=== PATIENT | female | born 1930 | race African-American/Black ===

== ENCOUNTER 2020-01-23 02:20 | Inpatient (IN) | payer BC, MEDICARE ==
[~2020-01-23] VITALS: Ht 162.6 cm; Wt 87.5 kg
[2020-01-23 02:20] VITALS: BP 126/66
[2020-01-23] MEDS ORDERED: METO-539 MT (04:27)
[2020-01-23] MEDS ORDERED: AMLO5TAB4 MT (04:27)
[2020-01-23] MEDS ORDERED: HYDR-2510 PO (04:27)
[2020-01-23] MEDS ORDERED: HYDR100T26 MT (04:27)
[2020-01-23] MEDS ORDERED: GABA-531 PO (04:27)
[2020-01-23] MEDS ORDERED: GLIM1TAB MT (04:27)
[2020-01-23] MEDS ORDERED: LOSA100T3 MT (04:27)
[2020-01-23] MEDS ORDERED: ATOR20TA65 MT (04:27)
[2020-01-23 04:30] VITALS: BP 145/61
[2020-01-23] MEDS ORDERED: DEXTROSE 50% WATER 50ML SYRINGE IV PRN (04:30)
[2020-01-23] MEDS: BLOOD SUGAR DIAGNOSTIC STRIP TEST SCH ×4 (07:47→21:29)
[2020-01-23 08:09] VITALS: BP 154/59
[2020-01-23] MEDS: INSULIN LISPRO 100 UNITS/ML SUBCUT SCH ×4 (08:35→21:34)
[2020-01-23] MEDS: FUROSEMIDE 40MG/4ML VIAL IVP SCH (08:37)
[2020-01-23] MEDS: HYDRALAZINE HCL 100MG TABLET PO SCH ×2 (08:37→21:40)
[2020-01-23] MEDS: HYDROCHLOROTHIAZIDE 25MG TABLET PO SCH (08:37)
[2020-01-23] MEDS: GLIMEPIRIDE 1MG TABLET PO SCH (08:37)
[2020-01-23] MEDS: CEFTRIAXONE 1 G PREMIX 50 ML IV SCH (08:38)
[2020-01-23] MEDS: METOPROLOL TARTRATE 50MG TABLET PO SCH ×2 (08:38→21:36)
[2020-01-23] MEDS: AMLODIPINE 5MG TABLET PO SCH ×2 (08:41→21:35)
[2020-01-23] MEDS: LOSARTAN POTASSIUM 100 MG TABLET PO SCH (08:41)
[2020-01-23 10:28] LABS: BASOPHILS % 0.3 % (0.0-2.0); EOSINOPHILS % 1.5 % (0.0-5.0); HEMATOCRIT. 25.4 % (36.0-48.0); HEMOGLOBIN. 8.1 g/dL (12.0-16.0); LYMPHOCYTES % 8.1 % (20.0-50.0); MEAN CORPUSCULAR HEMOGLOBIN 26.3 pg (28.0-32.0); MEAN CORPUSCULAR VOLUME 82.7 fL (81.0-99.0); MONOCYTES % 6.7 % (2.0-8.0); NEUTROPHILS % 83.4 % (40.0-76.0); PLATELET 244 x1000/uL (130-400); RED BLOOD CELL COUNT 3.07 mill/uL (4.2-5.4); RED CELL DISTRIBUTION WIDTH 14.7 % (11.6-14.6)
[2020-01-23 10:41] LABS: CHLORIDE 109 mEq/L (98-107)
[2020-01-23 12:03] VITALS: BP 125/74
[2020-01-23] MEDS: ENOXAPARIN 30MG/0.3ML SYR SUBCUT SCH (12:35)
[2020-01-23 16:11] VITALS: BP 154/68
[2020-01-23] MEDS ORDERED: ACETAMINOPHEN 325MG TABLET PO PRN (17:00)
[2020-01-23] MEDS ORDERED: SODIUM CHLORIDE 0.45% 1,000 ML IV SCH (17:30)
[2020-01-23] MEDS: AZITHROMYCIN 500 MG TABLET PO SCH (18:07)
[2020-01-23] MEDS: LIDOCAINE 5% PATCH TOP SCH (18:31)
[2020-01-23 20:19] LABS: CREATINE KINASE 1548 IU/L (26-192)
[2020-01-23 20:22] VITALS: BP 125/65
[2020-01-23] MEDS: ATORVASTATIN CALCIUM 20MG TABLET PO SCH (21:35)
[2020-01-23] MEDS: GABAPENTIN 300MG CAPSULE PO SCH (21:35)
[2020-01-24] LABS: CLARITY URINE CLEAR (CLEAR); COLOR URINE YELLOW (YELLOW); KETONES URINE NEGATIVE (NEGATIVE); LEUKOCYTE ESTERASE URINE 2+ (NEGATIVE); NITRITE URINE NEGATIVE (NEGATIVE); OCCULT BLOOD URINE NEGATIVE (NEGATIVE); PROTEIN URINE 1+ (NEGATIVE); SPECIFIC GRAVITY URINE 1.013 (1.005-1.030); UROBILINOGEN URINE 0.2 E.U./dL (0.2-1.0)
[2020-01-24 00:24] VITALS: BP 137/55
[2020-01-24 04:00] VITALS: BP 138/54
[2020-01-24] MEDS: BLOOD SUGAR DIAGNOSTIC STRIP TEST SCH ×4 (06:40→21:08)
[2020-01-24] MEDS: GLIMEPIRIDE 1MG TABLET PO SCH (06:43)
[2020-01-24 07:00] LABS: PROTHROMBIN TIME 10.4 sec (9.6-11.0)
[2020-01-24 07:16] LABS: BASOPHILS % 0.4 % (0.0-2.0); CHLORIDE 109 mEq/L (98-107); EOSINOPHILS % 3.6 % (0.0-5.0); HEMATOCRIT. 21.9 % (36.0-48.0); HEMOGLOBIN. 7.1 g/dL (12.0-16.0); LYMPHOCYTES % 12.7 % (20.0-50.0); MEAN CORPUSCULAR HEMOGLOBIN 26.4 pg (28.0-32.0); MEAN CORPUSCULAR VOLUME 81.2 fL (81.0-99.0); MONOCYTES % 7.3 % (2.0-8.0); RED BLOOD CELL COUNT 2.69 mill/uL (4.2-5.4); RED CELL DISTRIBUTION WIDTH 14.6 % (11.6-14.6)
[2020-01-24 08:06] VITALS: BP 125/75
[2020-01-24 08:46] LABS: MEAN PLATELET VOLUME 8.6 fl (7.4-10.4); PLATELET 203 x1000/uL (130-400)
[2020-01-24] MEDS: HYDROCHLOROTHIAZIDE 25MG TABLET PO SCH (08:46)
[2020-01-24] MEDS: LOSARTAN POTASSIUM 100 MG TABLET PO SCH (08:46)
[2020-01-24] MEDS: CEFTRIAXONE 1 G PREMIX 50 ML IV SCH (08:46)
[2020-01-24] MEDS: HYDRALAZINE HCL 100MG TABLET PO SCH ×2 (08:47→21:07)
[2020-01-24] MEDS: AZITHROMYCIN 500 MG TABLET PO SCH (08:47)
[2020-01-24] MEDS: AMLODIPINE 5MG TABLET PO SCH ×2 (08:48→21:07)
[2020-01-24] MEDS: METOPROLOL TARTRATE 50MG TABLET PO SCH ×2 (08:48→21:07)
[2020-01-24] MEDS: ENOXAPARIN 30MG/0.3ML SYR SUBCUT SCH (08:49)
[2020-01-24] MEDS: INSULIN LISPRO 100 UNITS/ML SUBCUT SCH ×4 (08:51→21:00)
[2020-01-24] MEDS: LIDOCAINE 5% PATCH TOP SCH (09:31)
[2020-01-24 12:08] VITALS: BP 130/57
[2020-01-24] MEDS ORDERED: IPRATROPIUM/ALBUTEROL 0.5-3(2.5)MG/3ML NEB HHN PRN (14:00)
[2020-01-24 16:04] VITALS: BP 142/55
[2020-01-24] MEDS: TRAMADOL 50MG TABLET PO PRN (18:10)
[2020-01-24 20:04] VITALS: BP 117/57
[2020-01-24] MEDS: ATORVASTATIN CALCIUM 20MG TABLET PO SCH (21:07)
[2020-01-24] MEDS: GABAPENTIN 300MG CAPSULE PO SCH (21:07)
[2020-01-24] MEDS: IPRATROPIUM/ALBUTEROL 0.5-3(2.5)MG/3ML NEB HHN SCH (23:45)
[2020-01-25] VITALS (9 sets, daily range): BP systolic 127–164; BP diastolic 48–73
[2020-01-25 06:27] LABS: BASOPHILS % 0.3 % (0.0-2.0); EOSINOPHILS % 3.8 % (0.0-5.0); HEMATOCRIT. 21.2 % (36.0-48.0); LYMPHOCYTES % 18.4 % (20.0-50.0); MEAN CORPUSCULAR VOLUME 81.6 fL (81.0-99.0); MEAN PLATELET VOLUME 7.9 fl (7.4-10.4); MONOCYTES % 8.1 % (2.0-8.0); NEUTROPHILS % 69.4 % (40.0-76.0); PLATELET 231 x1000/uL (130-400); RED CELL DISTRIBUTION WIDTH 14.6 % (11.6-14.6)
[2020-01-25] MEDS: BLOOD SUGAR DIAGNOSTIC STRIP TEST SCH ×3 (06:53→21:37)
[2020-01-25] MEDS: TRAMADOL 50MG TABLET PO PRN (06:56)
[2020-01-25] MEDS: GLIMEPIRIDE 1MG TABLET PO SCH (07:20)
[2020-01-25] MEDS: INSULIN LISPRO 100 UNITS/ML SUBCUT SCH ×4 (07:50→21:41)
[2020-01-25] MEDS: IPRATROPIUM/ALBUTEROL 0.5-3(2.5)MG/3ML NEB HHN SCH ×3 (08:27→20:26)
[2020-01-25] MEDS: CEFTRIAXONE 1 G PREMIX 50 ML IV SCH (08:34)
[2020-01-25] MEDS: LIDOCAINE 5% PATCH TOP SCH (08:34)
[2020-01-25] MEDS: ENOXAPARIN 30MG/0.3ML SYR SUBCUT SCH (08:35)
[2020-01-25] MEDS: FUROSEMIDE 40MG/4ML VIAL IVP SCH (08:35)
[2020-01-25] MEDS: AZITHROMYCIN 500 MG TABLET PO SCH (08:36)
[2020-01-25] MEDS: HYDROCHLOROTHIAZIDE 25MG TABLET PO SCH (08:36)
[2020-01-25] MEDS: LOSARTAN POTASSIUM 100 MG TABLET PO SCH (08:36)
[2020-01-25] MEDS: AMLODIPINE 5MG TABLET PO SCH ×2 (08:36→21:39)
[2020-01-25] MEDS: HYDRALAZINE HCL 100MG TABLET PO SCH ×2 (08:36→21:38)
[2020-01-25] MEDS: METOPROLOL TARTRATE 50MG TABLET PO SCH ×2 (08:37→21:39)
[2020-01-25 10:22] LABS: BG BASE EXCESS -7.6 mmol/L (-2.0-2.0); BG CARBOXYHEMOGLOBIN 0.9 % (0.5-1.5); BG DEOXYHEMOGLOBIN 5.8 % (0.0-5.0); BG FRACTION INSPIRED OXYGEN 21; BG HCO3 ACT 16.9 mmol/L (22.0-26.0); BG METHEMOGLOBIN 0.2 % (0.0-1.5); BG OXYGEN SATURATION 94.1 % (92.0-98.5); BG OXYHEMOGLOBIN 93.1 % (94.0-97.0); BG PCO2 30.4 mmHg (35.0-45.0); BG PH 7.364 (7.350-7.450); BG PO2 72.5 mmHg (75.0-100.0); BG SAMPLE SITE RIGHT RADIAL; BG TOTAL HEMOGLOBIN 8.1 g/dL (12.0-18.0); BG VENT MODE ROOM AIR
[2020-01-25 12:29] LABS: CREATINE KINASE 487 IU/L (26-192)
[2020-01-25] MEDS: SODIUM BICARBONATE IV SCH (13:40)
[2020-01-25] MEDS: SODIUM CHLORIDE 0.45% IV SCH (13:40)
[2020-01-25] MEDS: FERROUS SULFATE 325MG TABLET PO SCH (17:44)
[2020-01-25] MEDS: GABAPENTIN 300MG CAPSULE PO SCH (21:39)
[2020-01-25] MEDS: ATORVASTATIN CALCIUM 20MG TABLET PO SCH (21:39)
[2020-01-25] MEDS: EPOETIN ALFA 10000UNITS/ML VIAL SUBCUT SCH (21:41)
[2020-01-25] MEDS: HYDROCODONE/ACETAMINOPHEN 5/325MG TABLET PO PRN (22:29)
[2020-01-26] VITALS (8 sets, daily range): BP systolic 107–164; BP diastolic 47–59
[2020-01-26] MEDS: IPRATROPIUM/ALBUTEROL 0.5-3(2.5)MG/3ML NEB HHN SCH ×4 (00:58→19:41)
[2020-01-26] MEDS: SODIUM BICARBONATE IV SCH ×2 (01:35→21:07)
[2020-01-26] MEDS: SODIUM CHLORIDE 0.45% IV SCH ×2 (01:35→21:07)
[2020-01-26 06:16] LABS: BASOPHILS % 0.3 % (0.0-2.0); EOSINOPHILS % 2.4 % (0.0-5.0); HEMATOCRIT. 23.6 % (36.0-48.0); LYMPHOCYTES % 15.8 % (20.0-50.0); MEAN CORPUSCULAR HEMOGLOBIN 27.1 pg (28.0-32.0); MEAN CORPUSCULAR VOLUME 80.3 fL (81.0-99.0); MONOCYTES % 12.3 % (2.0-8.0); NEUTROPHILS % 69.2 % (40.0-76.0); PLATELET 225 x1000/uL (130-400); RED BLOOD CELL COUNT 2.93 mill/uL (4.2-5.4); RED CELL DISTRIBUTION WIDTH 14.7 % (11.6-14.6)
[2020-01-26] MEDS: BLOOD SUGAR DIAGNOSTIC STRIP TEST SCH ×4 (06:46→20:49)
[2020-01-26 07:05] LABS: PHOSPHORUS 4.2 mg/dL (2.5-4.9)
[2020-01-26] MEDS: GLIMEPIRIDE 1MG TABLET PO SCH (10:12)
[2020-01-26] MEDS: FERROUS SULFATE 325MG TABLET PO SCH ×2 (10:12→18:37)
[2020-01-26] MEDS: LOSARTAN POTASSIUM 100 MG TABLET PO SCH (10:12)
[2020-01-26] MEDS: AMLODIPINE 5MG TABLET PO SCH ×2 (10:13→21:05)
[2020-01-26] MEDS: METOPROLOL TARTRATE 50MG TABLET PO SCH ×2 (10:14→21:05)
[2020-01-26] MEDS: ENOXAPARIN 30MG/0.3ML SYR SUBCUT SCH (10:15)
[2020-01-26] MEDS: INSULIN LISPRO 100 UNITS/ML SUBCUT SCH ×4 (10:19→21:05)
[2020-01-26] MEDS: HYDROCHLOROTHIAZIDE 25MG TABLET PO SCH (10:20)
[2020-01-26] MEDS: FUROSEMIDE 40MG/4ML VIAL IVP SCH (10:20)
[2020-01-26] MEDS: HYDRALAZINE HCL 100MG TABLET PO SCH ×2 (10:20→21:04)
[2020-01-26] MEDS: AZITHROMYCIN 500 MG TABLET PO SCH (10:20)
[2020-01-26] MEDS: LIDOCAINE 5% PATCH TOP SCH (10:25)
[2020-01-26] MEDS: CEFTRIAXONE 1,000 MG in DEXTROSE 5% WATER 50 ML IV SCH (10:25)
[2020-01-26] MEDS: ATORVASTATIN CALCIUM 20MG TABLET PO SCH (21:04)
[2020-01-26] MEDS: GABAPENTIN 300MG CAPSULE PO SCH (21:05)
[2020-01-27] MEDS: IPRATROPIUM/ALBUTEROL 0.5-3(2.5)MG/3ML NEB HHN SCH ×4 (02:55→21:46)
[2020-01-27 04:00] VITALS: BP 147/61
[2020-01-27] MEDS: SODIUM BICARBONATE IV SCH ×2 (05:00→19:48)
[2020-01-27] MEDS: SODIUM CHLORIDE 0.45% IV SCH ×2 (05:00→19:48)
[2020-01-27] MEDS: GLIMEPIRIDE 1MG TABLET PO SCH (06:23)
[2020-01-27] MEDS: HYDROCODONE/ACETAMINOPHEN 5/325MG TABLET PO PRN ×2 (06:23→21:09)
[2020-01-27] MEDS: BLOOD SUGAR DIAGNOSTIC STRIP TEST SCH ×4 (06:24→21:00)
[2020-01-27 06:26] LABS: BASOPHILS % 0.2 % (0.0-2.0); HEMOGLOBIN. 8.1 g/dL (12.0-16.0); LYMPHOCYTES % 16.6 % (20.0-50.0); MEAN CORPUSCULAR VOLUME 80.6 fL (81.0-99.0); MONOCYTES % 13.2 % (2.0-8.0); PLATELET 239 x1000/uL (130-400); RED BLOOD CELL COUNT 2.98 mill/uL (4.2-5.4); RED CELL DISTRIBUTION WIDTH 14.7 % (11.6-14.6)
[2020-01-27 08:00] VITALS: BP 145/56
[2020-01-27] MEDS: LIDOCAINE 5% PATCH TOP SCH (09:00)
[2020-01-27] MEDS: AZITHROMYCIN 500 MG TABLET PO SCH (09:32)
[2020-01-27] MEDS: HYDROCHLOROTHIAZIDE 25MG TABLET PO SCH (09:35)
[2020-01-27] MEDS: LOSARTAN POTASSIUM 100 MG TABLET PO SCH (09:35)
[2020-01-27] MEDS: FERROUS SULFATE 325MG TABLET PO SCH ×2 (09:35→17:34)
[2020-01-27] MEDS: AMLODIPINE 5MG TABLET PO SCH ×2 (09:37→21:08)
[2020-01-27] MEDS: METOPROLOL TARTRATE 50MG TABLET PO SCH ×2 (09:37→21:07)
[2020-01-27] MEDS: HYDRALAZINE HCL 100MG TABLET PO SCH ×2 (09:37→21:07)
[2020-01-27] MEDS: ENOXAPARIN 30MG/0.3ML SYR SUBCUT SCH (09:38)
[2020-01-27] MEDS: FUROSEMIDE 40MG/4ML VIAL IVP SCH (09:46)
[2020-01-27] MEDS: INSULIN LISPRO 100 UNITS/ML SUBCUT SCH ×4 (10:00→21:48)
[2020-01-27] MEDS: CEFTRIAXONE 1,000 MG in DEXTROSE 5% WATER 50 ML IV SCH (10:51)
[2020-01-27 12:00] VITALS: BP 139/59
[2020-01-27 16:00] VITALS: BP 124/53
[2020-01-27 20:45] VITALS: BP 165/81
[2020-01-27] MEDS: ATORVASTATIN CALCIUM 20MG TABLET PO SCH (21:07)
[2020-01-27] MEDS: GABAPENTIN 300MG CAPSULE PO SCH (21:07)
[2020-01-27] MEDS: EPOETIN ALFA 10000UNITS/ML VIAL SUBCUT SCH (21:08)
[2020-01-28] VITALS (7 sets, daily range): BP systolic 111–165; BP diastolic 53–72
[2020-01-28] MEDS: IPRATROPIUM/ALBUTEROL 0.5-3(2.5)MG/3ML NEB HHN SCH ×4 (03:15→20:48)
[2020-01-28] MEDS: GLIMEPIRIDE 1MG TABLET PO SCH (06:17)
[2020-01-28 07:11] LABS: BASOPHILS % 0.2 % (0.0-2.0); EOSINOPHILS % 0.1 % (0.0-5.0); HEMATOCRIT. 25.8 % (36.0-48.0); HEMOGLOBIN. 8.7 g/dL (12.0-16.0); LYMPHOCYTES % 10.7 % (20.0-50.0); MEAN CORPUSCULAR HEMOGLOBIN 27.2 pg (28.0-32.0); MEAN CORPUSCULAR VOLUME 81.2 fL (81.0-99.0); MEAN PLATELET VOLUME 7.6 fl (7.4-10.4); MONOCYTES % 5.2 % (2.0-8.0); NEUTROPHILS % 83.8 % (40.0-76.0); PLATELET 275 x1000/uL (130-400); RED BLOOD CELL COUNT 3.18 mill/uL (4.2-5.4); RED CELL DISTRIBUTION WIDTH 14.4 % (11.6-14.6)
[2020-01-28] MEDS: BLOOD SUGAR DIAGNOSTIC STRIP TEST SCH ×4 (07:20→20:45)
[2020-01-28 07:21] LABS: CHLORIDE 103 mEq/L (98-107)
[2020-01-28 07:44] LABS: CREATINE KINASE 115 IU/L (26-192)
[2020-01-28] MEDS: FERROUS SULFATE 325MG TABLET PO SCH ×2 (08:52→18:20)
[2020-01-28] MEDS: SODIUM BICARBONATE IV SCH (08:52)
[2020-01-28] MEDS: FUROSEMIDE 40MG/4ML VIAL IVP SCH (08:52)
[2020-01-28] MEDS: SODIUM CHLORIDE 0.45% IV SCH (08:52)
[2020-01-28] MEDS: METOPROLOL TARTRATE 50MG TABLET PO SCH ×2 (08:53→20:52)
[2020-01-28] MEDS: HYDRALAZINE HCL 100MG TABLET PO SCH ×2 (08:53→20:51)
[2020-01-28] MEDS: HYDROCHLOROTHIAZIDE 25MG TABLET PO SCH (08:53)
[2020-01-28] MEDS: AMLODIPINE 5MG TABLET PO SCH ×2 (08:53→20:52)
[2020-01-28] MEDS: LOSARTAN POTASSIUM 100 MG TABLET PO SCH (08:53)
[2020-01-28] MEDS: CEFTRIAXONE 1,000 MG in DEXTROSE 5% WATER 50 ML IV SCH (08:54)
[2020-01-28] MEDS: INSULIN LISPRO 100 UNITS/ML SUBCUT SCH ×4 (08:57→20:51)
[2020-01-28] MEDS: ENOXAPARIN 30MG/0.3ML SYR SUBCUT SCH (08:58)
[2020-01-28] MEDS: LIDOCAINE 5% PATCH TOP SCH (09:00)
[2020-01-28] MEDS ORDERED: AZITHROMYCIN 500 MG TABLET PO SCH (18:30)
[2020-01-28] MEDS: ATORVASTATIN CALCIUM 20MG TABLET PO SCH (20:51)
[2020-01-28] MEDS: GABAPENTIN 300MG CAPSULE PO SCH (20:52)
[2020-01-29] MEDS ORDERED: PARICALCITOL 1 MCG CAPSULE PO SCH (09:00)
== END 2020-01-28 22:00 | DRG 871 ==
LOC: 6WST 02:20
PROVIDERS: ADMIT Internal Medicine Critical Care Medicine; ATTEND Internal Medicine Critical Care Medicine
PROC: 0S9C3ZZ Drainage of Right Knee Joint, Percutaneous Approach (ICD-10-PCS; principal; 2020-01-27)
PROC: 3E0U33Z Introduction of Anti-inflammatory into Joints, Percutaneous Approach (ICD-10-PCS; 2020-01-27)
PROC: 3E0U3BZ Introduction of Anesthetic Agent into Joints, Percutaneous Approach (ICD-10-PCS; 2020-01-27)
DX: A41.9 Sepsis, unspecified organism (principal); J18.1 Lobar pneumonia, unspecified organism; N17.9 Acute kidney failure, unspecified; N18.4 Chronic kidney disease, stage 4 (severe); M62.82 Rhabdomyolysis; N25.81 Secondary hyperparathyroidism of renal origin; E46 Unspecified protein-calorie malnutrition; I13.0 Hypertensive heart and chronic kidney disease with heart failure and stage 1 through stage 4 chronic kidney disease, or unspecified chronic kidney disease; E11.22 Type 2 diabetes mellitus with diabetic chronic kidney disease; I25.10 Atherosclerotic heart disease of native coronary artery without angina pectoris; I45.9 Conduction disorder, unspecified; I49.8 Other specified cardiac arrhythmias; Z90.710 Acquired absence of both cervix and uterus; Z95.0 Presence of cardiac pacemaker; E66.9 Obesity, unspecified; E78.5 Hyperlipidemia, unspecified; M85.80 Other specified disorders of bone density and structure, unspecified site; M17.10 Unilateral primary osteoarthritis, unspecified knee; D63.8 Anemia in other chronic diseases classified elsewhere; Z68.34 Body mass index [BMI] 34.0-34.9, adult; I50.9 Heart failure, unspecified; M16.0 Bilateral primary osteoarthritis of hip; M46.1 Sacroiliitis, not elsewhere classified; M60.9 Myositis, unspecified; M70.70 Other bursitis of hip, unspecified hip; M81.0 Age-related osteoporosis without current pathological fracture; Z79.84 Long term (current) use of oral hypoglycemic drugs; Z79.899 Other long term (current) drug therapy; W01.0XXA Fall on same level from slipping, tripping and stumbling without subsequent striking against object, initial encounter; Y93.89 Activity, other specified; Y92.89 Other specified places as the place of occurrence of the external cause; Y99.8 Other external cause status
CPT/HCPCS: 36415; 36600; 71045; 72192; 73501; 73522; 73560; 80048; 80053; 81003; 82306; 82375; 82550; 82805; 82962; 83036; 83540; 83550; 83735; 83880; 83970; 84100; 85025; 86850; 86900; 86920; 93970; 94640; 97162; 97530; J0696; J0885; J1650; J1815; J1940; J3490; J7060; P9021

== ENCOUNTER 2020-01-28 22:02 | Inpatient (IN) | payer BC ==
[~2020-01-28] VITALS: Ht 162.6 cm; Wt 87.5 kg
[2020-01-28 22:02] VITALS: BP 121/55
[~2020-01-28 22:02] MED LIST: AMLO5TAB4 MT; ATOR20TA65 MT; GABA-531 PO; GLIM1TAB MT; HYDR-2510 PO; HYDR100T26 MT; LOSA100T3 MT; METO-539 MT
[2020-01-28 22:30] VITALS: BP 121/55
[2020-01-28] MEDS ORDERED: IPRATROPIUM/ALBUTEROL 0.5-3(2.5)MG/3ML NEB HHN PRN (23:30)
[2020-01-28] MEDS ORDERED: DEXTROSE 50% WATER 50ML SYRINGE IV PRN (23:30)
[2020-01-29] MEDS: BLOOD SUGAR DIAGNOSTIC STRIP TEST SCH ×4 (06:42→21:50)
[2020-01-29] MEDS: GLIMEPIRIDE 1MG TABLET PO SCH (06:42)
[2020-01-29] MEDS: IPRATROPIUM/ALBUTEROL 0.5-3(2.5)MG/3ML NEB HHN SCH ×3 (07:33→20:07)
[2020-01-29 08:00] VITALS: BP 141/59
[2020-01-29] MEDS: PARICALCITOL 1 MCG CAPSULE PO SCH (08:27)
[2020-01-29] MEDS: HYDRALAZINE HCL 100MG TABLET PO SCH ×2 (08:27→21:49)
[2020-01-29] MEDS: FUROSEMIDE 40MG TABLET PO SCH (08:27)
[2020-01-29] MEDS: LOSARTAN POTASSIUM 100 MG TABLET PO SCH (08:27)
[2020-01-29] MEDS: FERROUS SULFATE 325MG TABLET PO SCH ×2 (08:27→17:27)
[2020-01-29] MEDS: HYDROCHLOROTHIAZIDE 25MG TABLET PO SCH (08:27)
[2020-01-29] MEDS: HYDROCODONE/ACETAMINOPHEN 5/325MG TABLET PO PRN (08:27)
[2020-01-29] MEDS: AMLODIPINE 5MG TABLET PO SCH ×2 (08:28→21:49)
[2020-01-29] MEDS: METOPROLOL TARTRATE 50MG TABLET PO SCH ×2 (08:28→21:50)
[2020-01-29] MEDS: LIDOCAINE 5% PATCH TOP SCH (08:28)
[2020-01-29] MEDS: ENOXAPARIN 30MG/0.3ML SYR SUBCUT SCH (08:29)
[2020-01-29] MEDS: INSULIN LISPRO 100 UNITS/ML SUBCUT SCH ×4 (08:38→22:00)
[2020-01-29 10:48] LABS: BASOPHILS % 0.4 % (0.0-2.0); EOSINOPHILS % 3.1 % (0.0-5.0); HEMATOCRIT. 24.9 % (36.0-48.0); HEMOGLOBIN. 8.3 g/dL (12.0-16.0); LYMPHOCYTES % 15.8 % (20.0-50.0); MEAN CORPUSCULAR HEMOGLOBIN 27.1 pg (28.0-32.0); MEAN CORPUSCULAR VOLUME 81.5 fL (81.0-99.0); MEAN PLATELET VOLUME 7.2 fl (7.4-10.4); MONOCYTES % 10.7 % (2.0-8.0); PLATELET 321 x1000/uL (130-400); RED BLOOD CELL COUNT 3.06 mill/uL (4.2-5.4); RED CELL DISTRIBUTION WIDTH 14.5 % (11.6-14.6)
[2020-01-29] MEDS ORDERED: LACTULOSE 20G/30ML UDC PO PRN (15:00)
[2020-01-29] MEDS ORDERED: BISACODYL 5MG TABLET PO PRN (15:00)
[2020-01-29] MEDS ORDERED: NA PHOS,M-B/NA PHOS,DI-BA ENEMA 118ML PR PRN (15:00)
[2020-01-29 20:09] VITALS: BP 130/67
[2020-01-29] MEDS: EPOETIN ALFA 10000UNITS/ML VIAL SUBCUT SCH (21:00)
[2020-01-29] MEDS: GABAPENTIN 300MG CAPSULE PO SCH (21:49)
[2020-01-29] MEDS: ATORVASTATIN CALCIUM 20MG TABLET PO SCH (21:50)
[2020-01-30] MEDS: IPRATROPIUM/ALBUTEROL 0.5-3(2.5)MG/3ML NEB HHN SCH ×4 (03:03→20:06)
[2020-01-30] MEDS: HYDROCODONE/ACETAMINOPHEN 5/325MG TABLET PO PRN ×3 (06:04→22:23)
[2020-01-30] MEDS: GLIMEPIRIDE 1MG TABLET PO SCH (06:04)
[2020-01-30] MEDS: BLOOD SUGAR DIAGNOSTIC STRIP TEST SCH ×4 (06:06→21:00)
[2020-01-30] MEDS: INSULIN LISPRO 100 UNITS/ML SUBCUT SCH ×4 (06:06→21:00)
[2020-01-30 08:10] VITALS: BP 126/55
[2020-01-30] MEDS: HYDRALAZINE HCL 100MG TABLET PO SCH ×2 (09:24→22:15)
[2020-01-30] MEDS: FERROUS SULFATE 325MG TABLET PO SCH ×2 (09:24→16:53)
[2020-01-30] MEDS: METOPROLOL TARTRATE 50MG TABLET PO SCH ×2 (09:27→22:15)
[2020-01-30] MEDS: PARICALCITOL 1 MCG CAPSULE PO SCH (09:27)
[2020-01-30] MEDS: AMLODIPINE 5MG TABLET PO SCH ×2 (09:28→22:15)
[2020-01-30] MEDS: LOSARTAN POTASSIUM 100 MG TABLET PO SCH (09:28)
[2020-01-30] MEDS: ENOXAPARIN 30MG/0.3ML SYR SUBCUT SCH (09:28)
[2020-01-30] MEDS: LIDOCAINE 5% PATCH TOP SCH (09:29)
[2020-01-30] MEDS: HYDROCHLOROTHIAZIDE 25MG TABLET PO SCH (09:30)
[2020-01-30] MEDS: FUROSEMIDE 40MG TABLET PO SCH (09:40)
[2020-01-30 20:00] VITALS: BP 126/60
[2020-01-30] MEDS: ATORVASTATIN CALCIUM 20MG TABLET PO SCH (22:14)
[2020-01-30] MEDS: GABAPENTIN 300MG CAPSULE PO SCH (22:15)
[2020-01-31] MEDS: IPRATROPIUM/ALBUTEROL 0.5-3(2.5)MG/3ML NEB HHN SCH ×4 (02:57→22:45)
[2020-01-31] MEDS: BLOOD SUGAR DIAGNOSTIC STRIP TEST SCH ×4 (05:56→21:18)
[2020-01-31] MEDS: GLIMEPIRIDE 1MG TABLET PO SCH (06:00)
[2020-01-31 08:16] VITALS: BP 142/60
[2020-01-31] MEDS: FUROSEMIDE 40MG TABLET PO SCH (08:20)
[2020-01-31] MEDS: LOSARTAN POTASSIUM 100 MG TABLET PO SCH (08:20)
[2020-01-31] MEDS: AMLODIPINE 5MG TABLET PO SCH ×2 (08:20→21:00)
[2020-01-31] MEDS: PARICALCITOL 1 MCG CAPSULE PO SCH (08:20)
[2020-01-31] MEDS: HYDROCHLOROTHIAZIDE 25MG TABLET PO SCH (08:20)
[2020-01-31] MEDS: METOPROLOL TARTRATE 50MG TABLET PO SCH ×2 (08:20→21:00)
[2020-01-31] MEDS: FERROUS SULFATE 325MG TABLET PO SCH ×2 (08:21→17:32)
[2020-01-31] MEDS: HYDRALAZINE HCL 100MG TABLET PO SCH ×2 (08:21→21:00)
[2020-01-31] MEDS: ENOXAPARIN 30MG/0.3ML SYR SUBCUT SCH (08:22)
[2020-01-31] MEDS: LIDOCAINE 5% PATCH TOP SCH (08:22)
[2020-01-31] MEDS: INSULIN LISPRO 100 UNITS/ML SUBCUT SCH ×4 (08:32→22:09)
[2020-01-31 20:00] VITALS: BP 115/45
[2020-01-31] MEDS: ATORVASTATIN CALCIUM 20MG TABLET PO SCH (21:49)
[2020-01-31] MEDS: GABAPENTIN 300MG CAPSULE PO SCH (21:49)
[2020-02-01] MEDS: IPRATROPIUM/ALBUTEROL 0.5-3(2.5)MG/3ML NEB HHN SCH ×3 (01:15→20:45)
[2020-02-01] MEDS: BLOOD SUGAR DIAGNOSTIC STRIP TEST SCH ×4 (05:58→21:25)
[2020-02-01] MEDS: INSULIN LISPRO 100 UNITS/ML SUBCUT SCH ×4 (05:59→21:48)
[2020-02-01] MEDS: GLIMEPIRIDE 1MG TABLET PO SCH (06:00)
[2020-02-01 08:00] VITALS: BP 129/81
[2020-02-01] MEDS: FERROUS SULFATE 325MG TABLET PO SCH ×2 (08:41→17:20)
[2020-02-01] MEDS: PARICALCITOL 1 MCG CAPSULE PO SCH (08:42)
[2020-02-01] MEDS: HYDRALAZINE HCL 100MG TABLET PO SCH ×2 (08:42→21:44)
[2020-02-01] MEDS: HYDROCHLOROTHIAZIDE 25MG TABLET PO SCH (08:42)
[2020-02-01] MEDS: FUROSEMIDE 40MG TABLET PO SCH (08:42)
[2020-02-01] MEDS: AMLODIPINE 5MG TABLET PO SCH ×2 (08:42→21:45)
[2020-02-01] MEDS: LOSARTAN POTASSIUM 100 MG TABLET PO SCH (08:42)
[2020-02-01] MEDS: METOPROLOL TARTRATE 50MG TABLET PO SCH (08:42)
[2020-02-01] MEDS: LIDOCAINE 5% PATCH TOP SCH (08:54)
[2020-02-01] MEDS: ENOXAPARIN 30MG/0.3ML SYR SUBCUT SCH (08:54)
[2020-02-01 20:00] VITALS: BP 148/61
[2020-02-01] MEDS: GABAPENTIN 300MG CAPSULE PO SCH (21:44)
[2020-02-01] MEDS: EPOETIN ALFA 10000UNITS/ML VIAL SUBCUT SCH (21:46)
[2020-02-01] MEDS: ATORVASTATIN CALCIUM 20MG TABLET PO SCH (21:50)
[2020-02-02] MEDS: METOPROLOL TARTRATE 50MG TABLET PO SCH ×3 (00:22→21:00)
[2020-02-02] MEDS: IPRATROPIUM/ALBUTEROL 0.5-3(2.5)MG/3ML NEB HHN SCH ×4 (01:15→20:14)
[2020-02-02] MEDS: BLOOD SUGAR DIAGNOSTIC STRIP TEST SCH ×4 (06:27→21:00)
[2020-02-02] MEDS: INSULIN LISPRO 100 UNITS/ML SUBCUT SCH ×4 (06:28→22:45)
[2020-02-02] MEDS: GLIMEPIRIDE 1MG TABLET PO SCH (06:41)
[2020-02-02 06:47] LABS: BASOPHILS % 0.5 % (0.0-2.0); EOSINOPHILS % 3.7 % (0.0-5.0); HEMATOCRIT. 24.6 % (36.0-48.0); HEMOGLOBIN. 8.1 g/dL (12.0-16.0); LYMPHOCYTES % 18.5 % (20.0-50.0); MEAN CORPUSCULAR HEMOGLOBIN 26.8 pg (28.0-32.0); MEAN CORPUSCULAR VOLUME 81.2 fL (81.0-99.0); MONOCYTES % 8.5 % (2.0-8.0); NEUTROPHILS % 68.8 % (40.0-76.0); PLATELET 379 x1000/uL (130-400); RED BLOOD CELL COUNT 3.03 mill/uL (4.2-5.4); RED CELL DISTRIBUTION WIDTH 14.6 % (11.6-14.6)
[2020-02-02 07:41] LABS: PHOSPHORUS 4.6 mg/dL (2.5-4.9)
[2020-02-02 08:00] VITALS: BP 109/50
[2020-02-02] MEDS: LOSARTAN POTASSIUM 100 MG TABLET PO SCH (09:17)
[2020-02-02] MEDS: MULTIVITAMINS,THER W-MINERALS TABLET PO SCH (09:17)
[2020-02-02] MEDS: FUROSEMIDE 40MG TABLET PO SCH (09:17)
[2020-02-02] MEDS: HYDROCHLOROTHIAZIDE 25MG TABLET PO SCH (09:18)
[2020-02-02] MEDS: HYDRALAZINE HCL 100MG TABLET PO SCH ×2 (09:18→22:38)
[2020-02-02] MEDS: FERROUS SULFATE 325MG TABLET PO SCH ×2 (09:18→16:57)
[2020-02-02] MEDS: AMLODIPINE 5MG TABLET PO SCH ×2 (09:18→22:39)
[2020-02-02] MEDS: ENOXAPARIN 30MG/0.3ML SYR SUBCUT SCH (09:19)
[2020-02-02] MEDS: PARICALCITOL 1 MCG CAPSULE PO SCH (09:19)
[2020-02-02 09:20] VITALS: BP 137/58
[2020-02-02] MEDS: LIDOCAINE 5% PATCH TOP SCH (09:20)
[2020-02-02 20:16] VITALS: BP 145/55
[2020-02-02] MEDS: ATORVASTATIN CALCIUM 20MG TABLET PO SCH (22:38)
[2020-02-02] MEDS: GABAPENTIN 300MG CAPSULE PO SCH (22:38)
[2020-02-03] MEDS: IPRATROPIUM/ALBUTEROL 0.5-3(2.5)MG/3ML NEB HHN SCH ×4 (02:35→20:26)
[2020-02-03] MEDS: BLOOD SUGAR DIAGNOSTIC STRIP TEST SCH ×4 (06:03→21:42)
[2020-02-03] MEDS: INSULIN LISPRO 100 UNITS/ML SUBCUT SCH ×4 (06:04→21:45)
[2020-02-03] MEDS: GLIMEPIRIDE 1MG TABLET PO SCH (06:04)
[2020-02-03 08:00] VITALS: BP 124/51
[2020-02-03] MEDS: PARICALCITOL 1 MCG CAPSULE PO SCH (08:43)
[2020-02-03] MEDS: HYDROCHLOROTHIAZIDE 25MG TABLET PO SCH (08:43)
[2020-02-03] MEDS: LOSARTAN POTASSIUM 100 MG TABLET PO SCH (08:44)
[2020-02-03] MEDS: ENOXAPARIN 30MG/0.3ML SYR SUBCUT SCH (08:44)
[2020-02-03] MEDS: FUROSEMIDE 40MG TABLET PO SCH (08:44)
[2020-02-03] MEDS: MULTIVITAMINS,THER W-MINERALS TABLET PO SCH (08:44)
[2020-02-03] MEDS: HYDRALAZINE HCL 100MG TABLET PO SCH ×2 (08:44→21:51)
[2020-02-03] MEDS: AMLODIPINE 5MG TABLET PO SCH ×2 (08:44→21:41)
[2020-02-03] MEDS: METOPROLOL TARTRATE 50MG TABLET PO SCH ×2 (08:44→21:42)
[2020-02-03] MEDS: FERROUS SULFATE 325MG TABLET PO SCH ×2 (08:44→17:50)
[2020-02-03] MEDS: LIDOCAINE 5% PATCH TOP SCH (08:45)
[2020-02-03 20:00] VITALS: BP 134/53
[2020-02-03] MEDS: ATORVASTATIN CALCIUM 20MG TABLET PO SCH (21:41)
[2020-02-03] MEDS: GABAPENTIN 300MG CAPSULE PO SCH (21:41)
[2020-02-03] MEDS: EPOETIN ALFA 10000UNITS/ML VIAL SUBCUT SCH (21:45)
[2020-02-04] MEDS: IPRATROPIUM/ALBUTEROL 0.5-3(2.5)MG/3ML NEB HHN SCH ×3 (02:23→13:39)
[2020-02-04] MEDS: BLOOD SUGAR DIAGNOSTIC STRIP TEST SCH ×4 (06:12→21:44)
[2020-02-04] MEDS: GLIMEPIRIDE 1MG TABLET PO SCH (06:13)
[2020-02-04] MEDS: ACETAMINOPHEN 325MG TABLET PO PRN (06:35)
[2020-02-04 07:09] LABS: BASOPHILS % 0.6 % (0.0-2.0); EOSINOPHILS % 3.5 % (0.0-5.0); HEMATOCRIT. 24.3 % (36.0-48.0); HEMOGLOBIN. 8.1 g/dL (12.0-16.0); LYMPHOCYTES % 19.5 % (20.0-50.0); MEAN CORPUSCULAR HEMOGLOBIN 27.1 pg (28.0-32.0); MEAN CORPUSCULAR VOLUME 81.5 fL (81.0-99.0); MEAN PLATELET VOLUME 7.1 fl (7.4-10.4); MONOCYTES % 10.9 % (2.0-8.0); NEUTROPHILS % 65.5 % (40.0-76.0); PLATELET 403 x1000/uL (130-400); RED BLOOD CELL COUNT 2.98 mill/uL (4.2-5.4); RED CELL DISTRIBUTION WIDTH 14.5 % (11.6-14.6)
[2020-02-04 07:48] LABS: CHLORIDE 106 mEq/L (98-107)
[2020-02-04 08:00] VITALS: BP 104/38
[2020-02-04 08:00] LABS: PHOSPHORUS 4.8 mg/dL (2.5-4.9)
[2020-02-04 08:20] VITALS: BP 104/38
[2020-02-04] MEDS: MULTIVITAMINS,THER W-MINERALS TABLET PO SCH (08:22)
[2020-02-04] MEDS: ENOXAPARIN 30MG/0.3ML SYR SUBCUT SCH (08:22)
[2020-02-04] MEDS: FERROUS SULFATE 325MG TABLET PO SCH ×2 (08:22→16:27)
[2020-02-04] MEDS: LIDOCAINE 5% PATCH TOP SCH (08:22)
[2020-02-04] MEDS: FUROSEMIDE 40MG TABLET PO SCH (08:22)
[2020-02-04] MEDS: PARICALCITOL 1 MCG CAPSULE PO SCH (08:22)
[2020-02-04] MEDS: AMLODIPINE 5MG TABLET PO SCH ×2 (08:23→21:20)
[2020-02-04] MEDS: INSULIN LISPRO 100 UNITS/ML SUBCUT SCH ×4 (08:23→21:41)
[2020-02-04] MEDS: LOSARTAN POTASSIUM 100 MG TABLET PO SCH (08:23)
[2020-02-04] MEDS: HYDROCHLOROTHIAZIDE 25MG TABLET PO SCH (08:23)
[2020-02-04] MEDS: HYDRALAZINE HCL 100MG TABLET PO SCH ×2 (08:23→21:20)
[2020-02-04] MEDS: METOPROLOL TARTRATE 50MG TABLET PO SCH ×2 (08:23→21:21)
[2020-02-04 20:00] VITALS: BP 125/53
[2020-02-04] MEDS: GABAPENTIN 300MG CAPSULE PO SCH (21:19)
[2020-02-04] MEDS: ATORVASTATIN CALCIUM 20MG TABLET PO SCH (21:21)
[2020-02-05] MEDS: BLOOD SUGAR DIAGNOSTIC STRIP TEST SCH ×4 (06:51→20:51)
[2020-02-05] MEDS: ACETAMINOPHEN 325MG TABLET PO PRN (06:57)
[2020-02-05] MEDS: GLIMEPIRIDE 1MG TABLET PO SCH (07:00)
[2020-02-05 08:00] VITALS: BP 153/58
[2020-02-05] MEDS: INSULIN LISPRO 100 UNITS/ML SUBCUT SCH ×4 (09:00→20:53)
[2020-02-05] MEDS: LIDOCAINE 5% PATCH TOP SCH (09:24)
[2020-02-05] MEDS: AMLODIPINE 5MG TABLET PO SCH ×2 (09:25→21:29)
[2020-02-05] MEDS: FERROUS SULFATE 325MG TABLET PO SCH ×2 (09:26→18:02)
[2020-02-05] MEDS: MULTIVITAMINS,THER W-MINERALS TABLET PO SCH (09:26)
[2020-02-05] MEDS: FUROSEMIDE 40MG TABLET PO SCH (09:26)
[2020-02-05] MEDS: METOPROLOL TARTRATE 50MG TABLET PO SCH ×2 (09:27→21:30)
[2020-02-05] MEDS: PARICALCITOL 1 MCG CAPSULE PO SCH (09:27)
[2020-02-05] MEDS: LOSARTAN POTASSIUM 100 MG TABLET PO SCH (09:27)
[2020-02-05] MEDS: HYDROCHLOROTHIAZIDE 25MG TABLET PO SCH (09:27)
[2020-02-05] MEDS: HYDRALAZINE HCL 100MG TABLET PO SCH ×2 (09:28→21:28)
[2020-02-05] MEDS: ENOXAPARIN 30MG/0.3ML SYR SUBCUT SCH (09:29)
[2020-02-05] MEDS: IPRATROPIUM/ALBUTEROL 0.5-3(2.5)MG/3ML NEB HHN SCH ×3 (09:49→22:24)
[2020-02-05] MEDS ORDERED: LIDOCAINE HCL 4% CREAM 76GM TUBE TP PRN (14:00)
[2020-02-05 20:00] VITALS: BP 125/53
[2020-02-05] MEDS: GABAPENTIN 300MG CAPSULE PO SCH (21:29)
[2020-02-05] MEDS: ATORVASTATIN CALCIUM 20MG TABLET PO SCH (21:30)
[2020-02-06] MEDS: IPRATROPIUM/ALBUTEROL 0.5-3(2.5)MG/3ML NEB HHN SCH ×4 (01:42→22:24)
[2020-02-06] MEDS: BLOOD SUGAR DIAGNOSTIC STRIP TEST SCH ×4 (06:24→21:59)
[2020-02-06 07:12] LABS: BASOPHILS % 0.6 % (0.0-2.0); EOSINOPHILS % 2.5 % (0.0-5.0); HEMATOCRIT. 24.5 % (36.0-48.0); HEMOGLOBIN. 8.2 g/dL (12.0-16.0); LYMPHOCYTES % 19.5 % (20.0-50.0); MEAN CORPUSCULAR HEMOGLOBIN 27.3 pg (28.0-32.0); MEAN CORPUSCULAR VOLUME 81.5 fL (81.0-99.0); MEAN PLATELET VOLUME 6.7 fl (7.4-10.4); MONOCYTES % 12.7 % (2.0-8.0); NEUTROPHILS % 64.7 % (40.0-76.0); PLATELET 387 x1000/uL (130-400); RED CELL DISTRIBUTION WIDTH 14.7 % (11.6-14.6)
[2020-02-06 07:31] LABS: PHOSPHORUS 5.1 mg/dL (2.5-4.9)
[2020-02-06 08:00] VITALS: BP 114/38
[2020-02-06 09:51] VITALS: BP 114/38
[2020-02-06] MEDS: LIDOCAINE 5% PATCH TOP SCH (09:58)
[2020-02-06] MEDS: FERROUS SULFATE 325MG TABLET PO SCH ×2 (09:58→17:10)
[2020-02-06] MEDS: HYDROCHLOROTHIAZIDE 25MG TABLET PO SCH (09:59)
[2020-02-06] MEDS: METOPROLOL TARTRATE 50MG TABLET PO SCH ×2 (09:59→21:49)
[2020-02-06] MEDS: HYDRALAZINE HCL 100MG TABLET PO SCH ×2 (09:59→21:50)
[2020-02-06] MEDS: MULTIVITAMINS,THER W-MINERALS TABLET PO SCH (10:00)
[2020-02-06] MEDS: FUROSEMIDE 40MG TABLET PO SCH (10:00)
[2020-02-06] MEDS: PARICALCITOL 1 MCG CAPSULE PO SCH (10:00)
[2020-02-06] MEDS: ENOXAPARIN 30MG/0.3ML SYR SUBCUT SCH (10:01)
[2020-02-06] MEDS: LOSARTAN POTASSIUM 100 MG TABLET PO SCH (10:01)
[2020-02-06] MEDS: AMLODIPINE 5MG TABLET PO SCH ×2 (10:01→21:50)
[2020-02-06] MEDS: GLIMEPIRIDE 1MG TABLET PO SCH (10:19)
[2020-02-06] MEDS: INSULIN LISPRO 100 UNITS/ML SUBCUT SCH ×4 (10:22→21:00)
[2020-02-06 20:00] VITALS: BP 136/55
[2020-02-06] MEDS: ATORVASTATIN CALCIUM 20MG TABLET PO SCH (21:48)
[2020-02-06] MEDS: GABAPENTIN 300MG CAPSULE PO SCH (21:49)
[2020-02-07] MEDS: IPRATROPIUM/ALBUTEROL 0.5-3(2.5)MG/3ML NEB HHN SCH ×4 (02:10→21:18)
[2020-02-07] MEDS: BLOOD SUGAR DIAGNOSTIC STRIP TEST SCH ×4 (05:34→21:40)
[2020-02-07] MEDS: GLIMEPIRIDE 1MG TABLET PO SCH (06:00)
[2020-02-07 08:00] VITALS: BP 102/41
[2020-02-07] MEDS: FERROUS SULFATE 325MG TABLET PO SCH ×2 (08:15→16:46)
[2020-02-07] MEDS: FUROSEMIDE 40MG TABLET PO SCH (08:15)
[2020-02-07] MEDS: INSULIN LISPRO 100 UNITS/ML SUBCUT SCH ×4 (08:15→21:00)
[2020-02-07] MEDS: PARICALCITOL 1 MCG CAPSULE PO SCH (08:15)
[2020-02-07] MEDS: HYDROCHLOROTHIAZIDE 25MG TABLET PO SCH (08:15)
[2020-02-07] MEDS: MULTIVITAMINS,THER W-MINERALS TABLET PO SCH (08:15)
[2020-02-07] MEDS: ENOXAPARIN 30MG/0.3ML SYR SUBCUT SCH (08:16)
[2020-02-07] MEDS: LIDOCAINE 5% PATCH TOP SCH (08:32)
[2020-02-07] MEDS: HYDRALAZINE HCL 100MG TABLET PO SCH ×2 (09:00→21:39)
[2020-02-07] MEDS: METOPROLOL TARTRATE 50MG TABLET PO SCH ×2 (09:00→21:39)
[2020-02-07] MEDS: AMLODIPINE 5MG TABLET PO SCH ×2 (09:00→21:40)
[2020-02-07] MEDS: LOSARTAN POTASSIUM 100 MG TABLET PO SCH (09:00)
[2020-02-07 20:00] VITALS: BP 145/59
[2020-02-07] MEDS: ATORVASTATIN CALCIUM 20MG TABLET PO SCH (21:39)
[2020-02-07] MEDS: GABAPENTIN 300MG CAPSULE PO SCH (21:40)
[2020-02-08] MEDS: IPRATROPIUM/ALBUTEROL 0.5-3(2.5)MG/3ML NEB HHN SCH ×4 (02:09→22:12)
[2020-02-08] MEDS: ACETAMINOPHEN 325MG TABLET PO PRN (05:59)
[2020-02-08] MEDS: GLIMEPIRIDE 1MG TABLET PO SCH (06:00)
[2020-02-08] MEDS: BLOOD SUGAR DIAGNOSTIC STRIP TEST SCH ×4 (06:09→21:06)
[2020-02-08 06:56] LABS: BASOPHILS % 0.3 % (0.0-2.0); EOSINOPHILS % 2.8 % (0.0-5.0); HEMATOCRIT. 25.1 % (36.0-48.0); HEMOGLOBIN. 8.3 g/dL (12.0-16.0); LYMPHOCYTES % 26.4 % (20.0-50.0); MEAN CORPUSCULAR HEMOGLOBIN 27.3 pg (28.0-32.0); MEAN CORPUSCULAR VOLUME 82.4 fL (81.0-99.0); MEAN PLATELET VOLUME 7.1 fl (7.4-10.4); MONOCYTES % 14.8 % (2.0-8.0); NEUTROPHILS % 55.7 % (40.0-76.0); PLATELET 342 x1000/uL (130-400); RED BLOOD CELL COUNT 3.05 mill/uL (4.2-5.4); RED CELL DISTRIBUTION WIDTH 15.2 % (11.6-14.6)
[2020-02-08 07:18] LABS: PHOSPHORUS 5.2 mg/dL (2.5-4.9)
[2020-02-08 08:12] VITALS: BP 125/50
[2020-02-08] MEDS: MULTIVITAMINS,THER W-MINERALS TABLET PO SCH (08:23)
[2020-02-08] MEDS: FERROUS SULFATE 325MG TABLET PO SCH ×2 (08:23→16:07)
[2020-02-08] MEDS: METOPROLOL TARTRATE 50MG TABLET PO SCH ×2 (08:23→21:00)
[2020-02-08] MEDS: HYDROCHLOROTHIAZIDE 25MG TABLET PO SCH (08:24)
[2020-02-08] MEDS: LOSARTAN POTASSIUM 100 MG TABLET PO SCH (08:24)
[2020-02-08] MEDS: AMLODIPINE 5MG TABLET PO SCH ×2 (08:24→22:06)
[2020-02-08] MEDS: FUROSEMIDE 40MG TABLET PO SCH (08:24)
[2020-02-08] MEDS: PARICALCITOL 1 MCG CAPSULE PO SCH (08:24)
[2020-02-08] MEDS: ENOXAPARIN 30MG/0.3ML SYR SUBCUT SCH (08:25)
[2020-02-08] MEDS: INSULIN LISPRO 100 UNITS/ML SUBCUT SCH ×4 (08:27→22:46)
[2020-02-08] MEDS: LIDOCAINE 5% PATCH TOP SCH (08:27)
[2020-02-08 09:15] VITALS: BP 135/50
[2020-02-08] MEDS: HYDRALAZINE HCL 100MG TABLET PO SCH ×2 (09:42→22:05)
[2020-02-08] MEDS: SODIUM CHLORIDE 0.45% 1,000 ML IV SCH (16:50)
[2020-02-08 20:00] VITALS: BP 148/55
[2020-02-08] MEDS: GABAPENTIN 300MG CAPSULE PO SCH (22:05)
[2020-02-08] MEDS: ATORVASTATIN CALCIUM 20MG TABLET PO SCH (22:05)
[2020-02-09] MEDS: IPRATROPIUM/ALBUTEROL 0.5-3(2.5)MG/3ML NEB HHN SCH ×4 (02:48→22:11)
[2020-02-09] MEDS: BLOOD SUGAR DIAGNOSTIC STRIP TEST SCH ×4 (05:55→21:00)
[2020-02-09] MEDS: SODIUM CHLORIDE 0.45% 1,000 ML IV SCH ×2 (05:55→17:00)
[2020-02-09] MEDS: GLIMEPIRIDE 2MG TABLET PO SCH (05:57)
[2020-02-09 07:24] LABS: BASOPHILS % 0.3 % (0.0-2.0); EOSINOPHILS % 1.4 % (0.0-5.0); HEMATOCRIT. 25.1 % (36.0-48.0); HEMOGLOBIN. 8.2 g/dL (12.0-16.0); LYMPHOCYTES % 26.1 % (20.0-50.0); MEAN CORPUSCULAR VOLUME 82.2 fL (81.0-99.0); MEAN PLATELET VOLUME 7.2 fl (7.4-10.4); MONOCYTES % 14.8 % (2.0-8.0); NEUTROPHILS % 57.4 % (40.0-76.0); PLATELET 318 x1000/uL (130-400); RED BLOOD CELL COUNT 3.05 mill/uL (4.2-5.4); RED CELL DISTRIBUTION WIDTH 15.4 % (11.6-14.6)
[2020-02-09] MEDS: INSULIN LISPRO 100 UNITS/ML SUBCUT SCH ×4 (07:41→22:19)
[2020-02-09 08:00] VITALS: BP 131/49
[2020-02-09] MEDS: LIDOCAINE 5% PATCH TOP SCH (09:18)
[2020-02-09] MEDS: LOSARTAN POTASSIUM 100 MG TABLET PO SCH (09:18)
[2020-02-09] MEDS: MULTIVITAMINS,THER W-MINERALS TABLET PO SCH (09:19)
[2020-02-09] MEDS: HYDRALAZINE HCL 100MG TABLET PO SCH ×2 (09:20→22:18)
[2020-02-09] MEDS: FERROUS SULFATE 325MG TABLET PO SCH ×2 (09:21→17:00)
[2020-02-09] MEDS: PARICALCITOL 1 MCG CAPSULE PO SCH (09:21)
[2020-02-09] MEDS: AMLODIPINE 5MG TABLET PO SCH ×2 (09:21→22:18)
[2020-02-09] MEDS: METOPROLOL TARTRATE 50MG TABLET PO SCH ×2 (09:22→21:00)
[2020-02-09] MEDS: ENOXAPARIN 30MG/0.3ML SYR SUBCUT SCH (09:22)
[2020-02-09 20:00] VITALS: BP 141/54
[2020-02-09] MEDS: GABAPENTIN 300MG CAPSULE PO SCH (22:18)
[2020-02-09] MEDS: ATORVASTATIN CALCIUM 20MG TABLET PO SCH (22:18)
[2020-02-10] MEDS: IPRATROPIUM/ALBUTEROL 0.5-3(2.5)MG/3ML NEB HHN SCH ×4 (03:30→21:04)
[2020-02-10] MEDS: BLOOD SUGAR DIAGNOSTIC STRIP TEST SCH ×4 (06:13→21:00)
[2020-02-10] MEDS: GLIMEPIRIDE 2MG TABLET PO SCH (06:14)
[2020-02-10] MEDS: SODIUM CHLORIDE 0.45% 1,000 ML IV SCH (06:16)
[2020-02-10] MEDS: INSULIN LISPRO 100 UNITS/ML SUBCUT SCH ×4 (06:19→21:00)
[2020-02-10 08:00] VITALS: BP 99/36
[2020-02-10] MEDS: LOSARTAN POTASSIUM 100 MG TABLET PO SCH (09:00)
[2020-02-10] MEDS: METOPROLOL TARTRATE 50MG TABLET PO SCH ×2 (09:00→21:25)
[2020-02-10] MEDS: AMLODIPINE 5MG TABLET PO SCH ×2 (09:00→21:25)
[2020-02-10] MEDS: HYDRALAZINE HCL 100MG TABLET PO SCH ×2 (09:00→21:26)
[2020-02-10] MEDS: ENOXAPARIN 30MG/0.3ML SYR SUBCUT SCH (09:23)
[2020-02-10] MEDS: LIDOCAINE 5% PATCH TOP SCH (09:25)
[2020-02-10] MEDS: ACETAMINOPHEN 325MG TABLET PO PRN (09:26)
[2020-02-10] MEDS: FERROUS SULFATE 325MG TABLET PO SCH ×2 (09:30→17:00)
[2020-02-10] MEDS: MULTIVITAMINS,THER W-MINERALS TABLET PO SCH (09:32)
[2020-02-10] MEDS: PARICALCITOL 1 MCG CAPSULE PO SCH (09:33)
[2020-02-10] MEDS: HYDROCHLOROTHIAZIDE 25MG TABLET PO SCH (09:33)
[2020-02-10 20:00] VITALS: BP 135/60
[2020-02-10] MEDS: ATORVASTATIN CALCIUM 20MG TABLET PO SCH (21:26)
[2020-02-10] MEDS: GABAPENTIN 300MG CAPSULE PO SCH (21:26)
[2020-02-11] MEDS: IPRATROPIUM/ALBUTEROL 0.5-3(2.5)MG/3ML NEB HHN SCH ×2 (03:09→21:37)
[2020-02-11] MEDS: BLOOD SUGAR DIAGNOSTIC STRIP TEST SCH ×4 (06:40→20:49)
[2020-02-11] MEDS: GLIMEPIRIDE 2MG TABLET PO SCH (06:40)
[2020-02-11 08:08] VITALS: BP 128/52
[2020-02-11] MEDS: ENOXAPARIN 30MG/0.3ML SYR SUBCUT SCH (08:32)
[2020-02-11] MEDS: MULTIVITAMINS,THER W-MINERALS TABLET PO SCH (08:33)
[2020-02-11] MEDS: PARICALCITOL 1 MCG CAPSULE PO SCH (08:33)
[2020-02-11] MEDS: AMLODIPINE 5MG TABLET PO SCH ×2 (08:33→20:30)
[2020-02-11] MEDS: LOSARTAN POTASSIUM 100 MG TABLET PO SCH (08:33)
[2020-02-11] MEDS: HYDRALAZINE HCL 100MG TABLET PO SCH ×2 (08:33→20:29)
[2020-02-11] MEDS: FERROUS SULFATE 325MG TABLET PO SCH ×2 (08:33→17:21)
[2020-02-11] MEDS: METOPROLOL TARTRATE 50MG TABLET PO SCH ×2 (08:33→20:30)
[2020-02-11] MEDS: LIDOCAINE 5% PATCH TOP SCH (08:33)
[2020-02-11] MEDS: INSULIN LISPRO 100 UNITS/ML SUBCUT SCH ×4 (08:39→21:21)
[2020-02-11 08:56] LABS: PHOSPHORUS 5.2 mg/dL (2.5-4.9)
[2020-02-11 09:31] LABS: BASOPHILS % 1.2 % (0.0-2.0); EOSINOPHILS % 4.1 % (0.0-5.0); HEMATOCRIT. 26.1 % (36.0-48.0); HEMOGLOBIN. 8.6 g/dL (12.0-16.0); LYMPHOCYTES % 19.9 % (20.0-50.0); MEAN CORPUSCULAR HEMOGLOBIN 27.5 pg (28.0-32.0); MEAN CORPUSCULAR VOLUME 83.3 fL (81.0-99.0); MEAN PLATELET VOLUME 7.1 fl (7.4-10.4); MONOCYTES % 10.7 % (2.0-8.0); NEUTROPHILS % 64.1 % (40.0-76.0); PLATELET 296 x1000/uL (130-400); RED BLOOD CELL COUNT 3.14 mill/uL (4.2-5.4); RED CELL DISTRIBUTION WIDTH 16.6 % (11.6-14.6)
[2020-02-11] MEDS: CALCIUM ACETATE 667MG CAPSULE PO SCH (17:21)
[2020-02-11 20:00] VITALS: BP 144/60
[2020-02-11] MEDS: ATORVASTATIN CALCIUM 20MG TABLET PO SCH (20:30)
[2020-02-11] MEDS: GABAPENTIN 300MG CAPSULE PO SCH (20:31)
[2020-02-12] MEDS: IPRATROPIUM/ALBUTEROL 0.5-3(2.5)MG/3ML NEB HHN SCH ×4 (02:49→21:45)
[2020-02-12] MEDS: BLOOD SUGAR DIAGNOSTIC STRIP TEST SCH ×4 (06:18→21:02)
[2020-02-12] MEDS: GLIMEPIRIDE 2MG TABLET PO SCH (06:18)
[2020-02-12 06:57] LABS: BASOPHILS % 0.5 % (0.0-2.0); EOSINOPHILS % 3.7 % (0.0-5.0); HEMATOCRIT. 22.5 % (36.0-48.0); HEMOGLOBIN. 7.5 g/dL (12.0-16.0); LYMPHOCYTES % 23.6 % (20.0-50.0); MEAN CORPUSCULAR HEMOGLOBIN 27.6 pg (28.0-32.0); MEAN CORPUSCULAR VOLUME 82.5 fL (81.0-99.0); MEAN PLATELET VOLUME 7.2 fl (7.4-10.4); NEUTROPHILS % 60.2 % (40.0-76.0); PLATELET 254 x1000/uL (130-400); RED BLOOD CELL COUNT 2.73 mill/uL (4.2-5.4); RED CELL DISTRIBUTION WIDTH 15.8 % (11.6-14.6)
[2020-02-12 07:11] LABS: CHLORIDE 104 mEq/L (98-107)
[2020-02-12 07:29] LABS: PHOSPHORUS 5.3 mg/dL (2.5-4.9)
[2020-02-12 08:00] VITALS: BP 126/44
[2020-02-12] MEDS: CALCIUM ACETATE 667MG CAPSULE PO SCH ×3 (08:58→16:30)
[2020-02-12] MEDS: MULTIVITAMINS,THER W-MINERALS TABLET PO SCH (08:58)
[2020-02-12] MEDS: HYDROCHLOROTHIAZIDE 25MG TABLET PO SCH (08:58)
[2020-02-12] MEDS: LIDOCAINE 5% PATCH TOP SCH (08:58)
[2020-02-12] MEDS: LOSARTAN POTASSIUM 100 MG TABLET PO SCH (08:58)
[2020-02-12] MEDS: AMLODIPINE 5MG TABLET PO SCH ×2 (08:59→21:01)
[2020-02-12] MEDS: PARICALCITOL 1 MCG CAPSULE PO SCH (08:59)
[2020-02-12] MEDS: HYDRALAZINE HCL 100MG TABLET PO SCH ×2 (08:59→21:01)
[2020-02-12] MEDS: FERROUS SULFATE 325MG TABLET PO SCH ×2 (08:59→16:30)
[2020-02-12] MEDS: INSULIN LISPRO 100 UNITS/ML SUBCUT SCH ×4 (09:00→21:00)
[2020-02-12] MEDS: METOPROLOL TARTRATE 50MG TABLET PO SCH ×2 (09:00→21:01)
[2020-02-12] MEDS: ENOXAPARIN 30MG/0.3ML SYR SUBCUT SCH (09:02)
[2020-02-12 20:00] VITALS: BP 137/55
[2020-02-12] MEDS ORDERED: EPOETIN ALFA 10000UNITS/ML VIAL SUBCUT SCH (21:00)
[2020-02-12] MEDS: GABAPENTIN 300MG CAPSULE PO SCH (21:00)
[2020-02-12] MEDS: ATORVASTATIN CALCIUM 20MG TABLET PO SCH (21:01)
[2020-02-13] MEDS: IPRATROPIUM/ALBUTEROL 0.5-3(2.5)MG/3ML NEB HHN SCH ×2 (02:40→09:34)
[2020-02-13] MEDS: BLOOD SUGAR DIAGNOSTIC STRIP TEST SCH ×2 (05:47→11:10)
[2020-02-13] MEDS: GLIMEPIRIDE 2MG TABLET PO SCH (07:31)
[2020-02-13 07:58] VITALS: BP 114/40
[2020-02-13] MEDS: HYDRALAZINE HCL 100MG TABLET PO SCH (08:09)
[2020-02-13] MEDS: MULTIVITAMINS,THER W-MINERALS TABLET PO SCH (08:09)
[2020-02-13] MEDS: LOSARTAN POTASSIUM 100 MG TABLET PO SCH (08:09)
[2020-02-13] MEDS: PARICALCITOL 1 MCG CAPSULE PO SCH (08:09)
[2020-02-13] MEDS: METOPROLOL TARTRATE 50MG TABLET PO SCH (08:09)
[2020-02-13] MEDS: FERROUS SULFATE 325MG TABLET PO SCH (08:10)
[2020-02-13] MEDS: CALCIUM ACETATE 667MG CAPSULE PO SCH ×2 (08:10→12:12)
[2020-02-13] MEDS: ENOXAPARIN 30MG/0.3ML SYR SUBCUT SCH (08:10)
[2020-02-13] MEDS: AMLODIPINE 5MG TABLET PO SCH (08:10)
[2020-02-13] MEDS: LIDOCAINE 5% PATCH TOP SCH (08:12)
[2020-02-13] MEDS: INSULIN LISPRO 100 UNITS/ML SUBCUT SCH ×2 (09:00→12:18)
[2020-02-13 10:24] VITALS: BP 114/40
== END 2020-02-13 13:36 | disposition home or self-care (01) | DRG 871 ==
PROVIDERS: ADMIT Psychiatry & Neurology Neurology; ATTEND Specialist
DX: A41.9 Sepsis, unspecified organism (principal); J18.9 Pneumonia, unspecified organism; M62.82 Rhabdomyolysis; E46 Unspecified protein-calorie malnutrition; N17.9 Acute kidney failure, unspecified; N25.81 Secondary hyperparathyroidism of renal origin; N18.4 Chronic kidney disease, stage 4 (severe); D64.9 Anemia, unspecified; E11.22 Type 2 diabetes mellitus with diabetic chronic kidney disease; E66.9 Obesity, unspecified; G62.9 Polyneuropathy, unspecified; H91.90 Unspecified hearing loss, unspecified ear; I12.9 Hypertensive chronic kidney disease with stage 1 through stage 4 chronic kidney disease, or unspecified chronic kidney disease; I25.10 Atherosclerotic heart disease of native coronary artery without angina pectoris; I51.7 Cardiomegaly; K57.30 Diverticulosis of large intestine without perforation or abscess without bleeding; M17.10 Unilateral primary osteoarthritis, unspecified knee; M60.9 Myositis, unspecified; M70.70 Other bursitis of hip, unspecified hip; N18.9 Chronic kidney disease, unspecified; B35.1 Tinea unguium; E55.9 Vitamin D deficiency, unspecified; L60.0 Ingrowing nail; L60.3 Nail dystrophy; M85.80 Other specified disorders of bone density and structure, unspecified site; R00.1 Bradycardia, unspecified; M25.561 Pain in right knee; E83.42 Hypomagnesemia; E86.0 Dehydration; E78.5 Hyperlipidemia, unspecified; Z90.710 Acquired absence of both cervix and uterus; Z95.0 Presence of cardiac pacemaker; Z68.33 Body mass index [BMI] 33.0-33.9, adult; Z87.81 Personal history of (healed) traumatic fracture
CPT/HCPCS: 36415; 71045; 80048; 80053; 82962; 83735; 83970; 84100; 85025; 92523; 92610; 94640; 97110; 97112; 97116; 97162; 97166; 97530; 97535; J0885; J1650; J1815